=== PATIENT | male | born 1975 | race Caucasian/White ===

== ENCOUNTER 2016-08-22 01:34 | Emergency (ER) | payer OTHER ==
[~2016-08-22] VITALS: Ht 188 cm; Wt 103.0 kg
[2016-08-22 01:38] VITALS: BP 120/71; PULSE 106; RESP 16; O2SAT 97
[2016-08-22] MEDS ORDERED: GABA600T2 PO (01:41)
[2016-08-22] MEDS ORDERED: IBUP-1827 PO (01:41)
--- NOTE | 2016-08-22 01:44 | ED.REPORT ---
HPI-Dental/Mouth Prob Date of Service Aug 22, 2016 ED Provider: Gallito Garcia MD Pt is a 41 y.o. male who presents to the ED c/o left lower molar pain onset 2 days ago. Pt states he was eating hard chocolate chip cookies upon onset. He claims that he chipped his left lower molar and is now experiencing associated itchiness and swelling. He denies fever. Nursing Notes Stated Complaint: BROKEN TOOTH Chief Complaint: Dental Nursing Notes Reviewed: Yes ([facility], [employer] reconciled) Allergies: Coded Allergies: No Known Allergies (Unverified , 08/22/16) Scheduled PRN Gabapentin (Gabapentin) 600 Mg Tablet 600 MG PO TID PRN PRN nerve pain Ibuprofen (Ibuprofen) 600 Mg Tablet 600 MG PO BID PRN PRN For Pain oxyCODONE-Acetaminophen 5-325 mg (oxyCODONE-Acetaminophen 5-325 mg) 1 Each Tablet 1 TAB PO ONCE PRN PRN For Pain General Time Seen by MD: 01:44 Chief Complaint Tooth chipped Hx Obtained From: Patient Arrived By: Walk-in Onset Occurred: 2 days ago Symptom Duration: Since onset Location: : Tooth lower L molar Quality: Itching, Painful Severity: Current: Severe Recent Healthcare: No recent doctor visit, No recent hospitalization Past Medical History Past Medical History Chronic back pain/vertebral arthritis Past Surgical History None Smoking History Current Every Day Smoker (7/day) Social History 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 Physical Exam Initial Vital Signs Vital Signs (First) Date Time Temp Pulse Resp B/P Pulse Ox O2 Delivery O2 Flow Rate FiO2 08/22/16 01:38 36.3 106 16 120/71 97 Room Air Initial VS: Reviewed, Vital signs abnormal (HR 106) Head / Eyes: Atraumatic, Normocephalic Respiratory: Breath sounds normal, No respiratory distress Cardiovascular: Regular rate & rhythm, Intact distal pulses Abdomen / GI: No distention Extremities: Vascular intact, Neuro intact Skin: Warm, Dry, No cyanosis Neurologic: Alert, Oriented, Nonfocal Psychiatric: Mood/affect normal, Behavior normal, Normal thought content Dental / Gums: Positive: Decay extensive (Tooth 18), Dental caries present, Negative: Dental abscess Neck: Atraumatic General/Constitutional: Awake, Alert, Well appearing, Well developed, Well hydrated, Well nourished, Not toxic appearing Procedures Dental Nerve Block Dental Nerve Block Note: Tooth 18 Time: 01:51 Block Performed by: ED physician Consent / Setup / Site Prep: Informed consent provided, Consent from patient , Time-out performed, Topical anesthetic april, Hand hygiene observed, Stand sterile technique Anesthesia: Inferior alveolar block Local Anesthesia: Bupivacaine 0.5% (w epi) Post-Procedure / Complications: No complications, Condition improved, Tolerated procedure well, Patient stable Re-Eval/Medical Decision Med Decision/Clinical Course This is a 41-year-old male presents complaining of increasing dental pain. He has severe caries and felt the fracture there to go and has worsening pain today is concerned about infection. She denied fevers or chills. Patient states he is a smoker, states he has been off substances for about 4 years. Exam he has severe dental caries, but I do not appreciate pta abscess or anything would be amenable to incision and drainage. There is no signs of Christian angina, no evidence of airway compromise, no adenopathy, no facial or oral cellulitis or edema is evident. The patient is being started on course of penicillin. He is taking ibuprofen and he requested a single Percocet here and a single Percocet to take home, and I have agreed to provide this. The patient also underwent a dental block with marked improvement. He is discharged in improved condition after routine precautions Source of Hx: Old records Re-Evaluation/Progress : Time of Eval: 01:51 Patient Status: Condition improved, Pain improved Re-Evaluation/Progress Note: Dental block performed. Pt pain improved. Discussed plan for discharge, pt understands and agrees with plan. Differential Diagnosis: Negative: Abscess dental, Alveolar osteitis, Aphthous ulcer, Facial cellulitis, Laceration hard palate, Laceration soft palate, Lip laceration, Oral lesion, Stomatitis Counseled Regarding: Diagnosis, Need for follow-up, When/why to return to ED Discharge & Departure Primary Impression: Pain due to dental caries Disposition: Transfer, Acute Care Facility Discharge Condition All VS Reviewed: Yes Condition: Improved Additional Instructions: 1. Take the antibiotic penicillin VK 500mg three times a day for 10 days. 2. Continue ibuprofen 400-800 mg 3 times a day as needed. 3. You do need to see a dentist for definitive care. 4. If needed you can take oxycodone/APAP 5/325 1 tab PO x1. NOTE: His medication contains narcotic and causes drowsiness. No driving for at least 4 hours after taking. Referrals: Herson Garcia MD (PCP) Nino Attestation Portions of this note were transcribed by Dino Maya. I, Dr. Garcia personally performed the history, physical exam and medical decision-making; I reviewed and confirmed the accuracy of the information in the transcribed note. Signed by: Nino Doran, 08/22/16 and 0208. copies to: Herson Garcia MD, Matthew F MD Aug 22, 2016 01:44 DINO MAYA Aug 22, 2016 01:52
[2016-08-22] MEDS ORDERED: oxyCODONE-Acetamin 5-325 mg Tablet PO ONE (01:55)
[2016-08-22] MEDS ORDERED: OXYC1TAB24 PO (01:56)
[2016-08-22] MEDS ORDERED: _Penicillin VK 500 mg Tablet PO SCH (08:30)
== END 2016-08-22 02:28 | disposition short-term general hospital (02) ==
LOC: SED 01:37
DX: K02.9 Dental caries, unspecified (principal); K08.89 Other specified disorders of teeth and supporting structures